=== PATIENT | male | born 2005 | race Caucasian/White ===

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

== ENCOUNTER → 2025-02-15 | Outpatient (CLI) | payer BC, OTHER ==
--- NOTE | 2025-02-15 10:14 | XR ---
EXAMINATION TYPE: XR abdomen 1V DATE OF EXAM: 02/15/2025 9:48 AM CLINICAL INDICATION: Male, 19 years old with history of R10.9 abdominal pain, pain TECHNIQUE: 2 supine images of the abdomen. COMPARISON: None. FINDINGS: Some paucity of bowel gas. Scattered gas seen in nondistended small and large bowel loops. There is no visceromegaly or abnormal calcification appreciated. The lung bases are clear and the oss eous structures are intact. IMPRESSION: Overall nonobstructive bowel gas pattern. [facility], , 02/15/2025 10:11 AM
== END | disposition home or self-care (01) ==
LOC: RADXRMAIN 09:32
PROVIDERS: ATTEND Internal Medicine Gastroenterology
DX: R10.9 Unspecified abdominal pain (principal)
CPT/HCPCS: 74018

== ENCOUNTER → 2025-05-05 | Outpatient (CLI) | payer BC, OTHER ==
[2025-05-05 10:43] LABS: Hepatitis A Antibody IgM Nonreactive (Nonreactive); Hepatitis B Core IgM Nonreactive (Nonreactive); Hepatitis B Surface Antigen Nonreactive (Nonreactive); Hepatitis C IgG Antibody Nonreactive (Nonreactive)
[2025-05-05 10:44] LABS: C-Peptide 1.94 ng/mL (0.81-3.85)
[2025-05-05 11:07] LABS: ALT 20 U/L (10-49); AST 55 U/L (14-35); Albumin 4.3 g/dL (3.8-4.9); Albumin/Globulin Ratio 1.79 Ratio (1.60-3.17); Alkaline Phosphatase 57 U/L (41-126); Amylase 68 U/L (23-121); Blood Urea Nitrogen 10.9 mg/dL (9.0-27.0); C Reactive Protein <0.30 mg/dL (0.00-0.80); Calcium 9.2 mg/dL (8.7-10.3); Carbon Dioxide 27.2 mmol/L (21.6-31.8); Chloride 104 mmol/L (96-109); Chol/HDL Ratio 3.64 Ratio; Creatine Kinase 1526 U/L (35-257); Globulin 2.4 g/dL (1.6-3.3); Glucose 110 mg/dL (70-110); LDL Cholesterol,Calculated 93.2 mg/dL (0.0-131.0); Lipase 18 U/L (14-60); Potassium 3.9 mmol/L (3.5-5.5); Sodium 140 mmol/L (135-145); Total Bilirubin 0.8 mg/dL (0.3-1.2); Total Protein 6.7 g/dL (6.2-8.2)
[2025-05-05 11:08] LABS: T4, Free (Free Thyroxine) 1.44 ng/dL (0.83-1.43)
[2025-05-05 15:21] LABS: Basophils # (A) 0.05 X 10*3/uL (0.00-0.10); Basophils % (A) 1.2 %; Eosinophils # (A) 0.13 X 10*3/uL (0.04-0.35); Eosinophils % (A) 3.1 %; HCT 39.8 % (39.6-50.0); HGB 13.3 g/dL (13.0-17.0); Immature Grans, Automated 0 %; Lymphocytes # (A) 1.77 X 10*3/uL (0.90-5.00); Lymphocytes % (A) 42.3 %; MCH 30.1 pg (27.0-32.0); MCHC 33.4 g/dL (32.0-37.0); Mean Platelet Volume 9.9 FL (9.5-12.2); Monocytes # (A) 0.53 X 10*3/uL (0.20-1.00); Monocytes % (A) 12.7 %; NRBC Per 100 WBC 0 X 10*3/uL (0.00-0.01); Neutrophils % (A) 40.7 %; Platelet Count 291 X 10*3/uL (140-440); RBC 4.42 X 10*6/uL (4.40-5.60); RDW 11.7 % (11.5-14.5); WBC 4.18 X 10*3/uL (4.50-10.00)
[2025-05-05 16:02] LABS: Erythrocyte Sedimentation Rate 1 mm/Hr (0-15)
== END | disposition home or self-care (01) ==
LOC: LABWHC1 07:30
PROVIDERS: ATTEND Registered Nurse
DX: Z11.3 Encounter for screening for infections with a predominantly sexual mode of transmission (principal); Z13.29 Encounter for screening for other suspected endocrine disorder; Z13.220 Encounter for screening for lipoid disorders; Z13.6 Encounter for screening for cardiovascular disorders; Z13.1 Encounter for screening for diabetes mellitus; K57.30 Diverticulosis of large intestine without perforation or abscess without bleeding; R10.84 Generalized abdominal pain
CPT/HCPCS: 36415; 80053; 80061; 80074; 82150; 82550; 83036; 83690; 84439; 84443; 84681; 85025; 85652; 86140